=== PATIENT | male | born 1945 | race Caucasian/White ===

== ENCOUNTER 2016-05-20 10:27 | Emergency (ER) | payer MEDICARE, BC ==
--- NOTE | 2016-05-20 12:17 | ER NURSING DOCUMENTATION ---
Nurse's Notes [facility] Name:Gabino Palacios Age:70 yrs Sex:Male :1945 Arrival Date:05/20/2016 Time:10:27 Bed6 Private MD:Soy Lyles Diagnosis:Humeral Head Fracture Presentation: 05/20 10:39 Presenting complaint: Patient states: left shoulder pain s/p fall. denies paresthesia. lb Transition of care: patient was not received from another setting of care. Notified ED Physician of Dr. Allen notified. 10:39 Acuity: SADI 4 lb 10:39 Method Of Arrival: Walk In lb Triage Assessment: 10:41 General: Appears uncomfortable, Behavior is cooperative, pleasant. Pain: Complains of lb pain in anterior aspect of left shoulder Pain does not radiate. Pain currently is 8 out of 10 on a pain scale. Musculoskeletal: No deficits noted. Injury Description: fall on black ice. Historical: - Allergies: Morphine; - Home Meds: 1. Lisinopril Oral - PMHx: Hypertension; ARTHRITIS; - PSHx: Hip surgery; Knee surgery; - Tetanus: < 10 years. - Ebola Screening: : Patient negative for fever greater than or equal to 101.5 degrees Fahrenheit, and additional compatible Ebola Virus Disease symptoms. Patient denies exposure to infectious person. Patient denies travel to an Ebola-affected area in the 21 days before illness onset. No symptoms or risks identified at this time. . - Immunization history: Flu Vaccine < 1 year. - Social history: Smoking status: Patient states was never smoker of tobacco. Patient/guardian denies using alcohol. - Code Status:: Full code. Screenin:44 Infectious Disease Risk None. Abuse screen: Denies threats or abuse. Denies injuries lb from another. Nutritional screening: No deficits noted. Assessment: 10:44 See Triage Assessment done by same RN. lb Vital Signs: 10:43 BP 141 / 81; Pulse 72; Resp 16; Temp 98.2; Pulse Ox 95% on R/A; Weight 79.38 kg; Height lb 5 ft. 10 in. (177.80 cm); Pain 8/10; 12:00 BP 138 / 70; Pulse 68; Resp 14; Pulse Ox 95% on R/A; Pain 7/10; lb 10:43 Body Mass Index 25.11 (79.38 kg, 177.80 cm) lb ED Course: 10:32 Patient arrived in ED. ds 10:32 Soy Lyles MD is Private Physician. ds 10:37 Nick Allen MD is Attending Physician. sc 10:39 Kerry Mckeon is Primary Nurse. lb 10:40 Triage completed. lb 10:44 Valuables Remains with patient. lb 10:46 Patient moved to radiology. hz 10:57 Patient moved back from radiology. hz 11:59 Shoulder immobilizer applied on left shoulder. lb 12:00 Soy Lyles MD is Referral Physician. sc 12:00 Balwinder Crockett DO, Frandy Alfonso MD is Referral Physician. sc Administered Medications: No medications were administered Outcome: 11:59 Discharged to home ambulatory. lb 12:00 Condition: stable lb 12:00 Discharge Assessment: Patient awake, alert and oriented x 3. No cognitive and/or functional deficits noted. Patient verbalized understanding of disposition instructions. 12:00 Instructed on discharge instructions, follow up and referral plans. no drinking with medication, no driving heavy equipment, [facility] 12:01 Discharge ordered by . sc 12:16 Patient left the ED. lb Signatures: Kenneth, Bharati, Reg Reg ds Nick Allen MD MD sc Bollock, Lynda lb Radha Todd
--- NOTE | 2016-05-20 12:17 | ER PHYSICIAN DOCUMENTATION ---
Physician Documentation [facility] Name:Gabino Palacios Age:70 yrs Sex:Male :1945 Arrival Date:05/20/2016 Time:10:27 Bed6 Private MD:Soy Lyles ED, Scott Disposition: 05/20/16 12:01 Discharged to Home/Self Care. Impression: Humeral Head Fracture. - Condition is Good. - Discharge Instructions: FRACTURE, Upper Extremity. - Prescriptions for Hydrocodone- Acetaminophen 5-325 mg Oral Tablet - take 1 tablet by ORAL route every 6 hours As needed; 20 tablet. - Medical Reconciliation form form. - Follow up: Soy Lyles MD; When: 2 - 3 days; Reason: Continuance of care. Follow up: Balwinder Crockett DO, Frandy Alfonso MD; When: 4- 6 days; Reason: Continuance of care. - Problem is new. - Symptoms have improved. HPI: 05/20 11:53 This 70 yrs old Male presents to ER via Walk In with complaints of Shoulder sc Injury - LEFT. 11:53 The patient or guardian complains of an injury, pain. anterior aspect of left shoulder. sc Context: The problem was sustained outdoors, resulted from a fall, a direct blow, The patient experiences decreased range of motion, The patient reports no obvious deformity. Onset: The symptom(s)/episode began/occurred at 09:30. Associated signs and symptoms: The patient has no apparent associated signs or symptoms. Historical: - Allergies: Morphine; - Home Meds: 1. Lisinopril Oral - PMHx: Hypertension; ARTHRITIS; - PSHx: Hip surgery; Knee surgery; - Tetanus: < 10 years. - Ebola Screening: : Patient negative for fever greater than or equal to 101.5 degrees Fahrenheit, and additional compatible Ebola Virus Disease symptoms. Patient denies exposure to infectious person. Patient denies travel to an Ebola-affected area in the 21 days before illness onset. No symptoms or risks identified at this time. . - Immunization history: Flu Vaccine < 1 year. - Social history: Smoking status: Patient states was never smoker of tobacco. Patient/guardian denies using alcohol. - Code Status:: Full code. ROS: 11:57 Constitutional: Negative for fever, chills, and weight loss. sc Eyes: Negative for injury, pain, redness, and discharge. ENT: Negative for injury, pain, and discharge. Neck: Negative for injury, pain, and swelling. Cardiovascular: Negative for chest pain, palpitations, and edema. Respiratory: Negative for shortness of breath, cough, wheezing, and pleuritic chest pain. Abdomen/GI: Negative for abdominal pain, nausea, vomiting, diarrhea, and constipation. Back: Negative for injury and pain. Skin: Negative for injury, rash, and discoloration. 11:57 Neuro: Negative for headache, weakness, numbness, tingling, and seizure. sc 11:57 MS/extremity: Positive for injury or acute deformity, pain. Exam: Constitutional: This is a well developed, well nourished patient who is awake, alert, and in no acute distress. Head/Face: Normocephalic, atraumatic. Eyes: Pupils equal round and reactive to light, extra-ocular motions intact. Lids and lashes normal. Conjunctiva and sclera are non-icteric and not injected. Cornea within normal limits. Periorbital areas with no swelling, redness, or edema. ENT: Nares patent. No nasal discharge, no septal abnormalities noted. Tympanic membranes are normal and external auditory canals are clear. Oropharynx with no redness, swelling, or masses, exudates, or evidence of obstruction, uvula midline. Mucous membranes moist. Skin: Warm, dry with normal turgor. Normal color with no rashes, no lesions, and no evidence of cellulitis. 11:58 Neuro: Awake and alert, GCS 15, oriented to person, place, time, and situation. ny Cranial nerves II-XII grossly intact. Motor strength 5/5 in all extremities. Sensory grossly intact. Cerebellar exam normal. Normal gait. 11:58 Musculoskeletal/extremity: Extremities: grossly normal except: pain, Circulation is intact in all extremities. Sensation intact. Vital Signs: 10:43 BP 141 / 81; Pulse 72; Resp 16; Temp 98.2; Pulse Ox 95% on R/A; Weight 79.38 kg; Height lb 5 ft. 10 in. (177.80 cm); Pain 8/10; 12:00 BP 138 / 70; Pulse 68; Resp 14; Pulse Ox 95% on R/A; Pain 7/10; lb 10:43 Body Mass Index 25.11 (79.38 kg, 177.80 cm) lb MDM: 10:38 Patient medically screened. ny 12:00 Differential diagnosis: humeral head fracture. Data reviewed: vital signs, nurses sc notes, radiologic studies, and as a result, I will discharge patient. Counseling: I had a detailed discussion with the patient and/or guardian regarding: the historical points, exam findings, and any diagnostic results supporting the discharge/admit diagnosis, radiology results, the need for outpatient follow up, for a referral to a specialist. 05/20 11:53 Order name: ORTHO: Shoulder Immobilizer; Complete Time: 11:59 sc Dispensed Medications: No medications were administered Signatures: Nick Allen MD MD ny Kerry Mckeon
--- NOTE | 2016-05-20 13:44 | RADIOLOGY REPORT ---
Three views of the left shoulder demonstrate a nondisplaced transverse fracture of the neck of the humerus. No other acute abnormality is noted. Marked degenerative changes of the glenohumeral joint are identified. No other abnormality is seen. IMPRESSION: 1. 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 2. Nondisplaced fracture of the neck of the humerus. MTDD
== END 2016-05-20 12:17 | disposition home or self-care (01) ==
LOC: ER 10:27
DX: S42.295A Other nondisplaced fracture of upper end of left humerus, initial encounter for closed fracture (principal); W19.XXXA Unspecified fall, initial encounter; Y92.89 Other specified places as the place of occurrence of the external cause; I10 Essential (primary) hypertension; Z79.899 Other long term (current) drug therapy
CPT/HCPCS: 73030; 99283